=== PATIENT | female | born 2005 ===

== ENCOUNTER 2025-07-08 10:53 | Emergency (ER) | payer OTHER, SELFPAY ==
[2025-07-08 11:04] VITALS: BP 116/82; PULSE 85; O2SAT 100; BMI 17.7
[2025-07-08 11:46] LABS: MANUAL DIFF FLAG NO
[2025-07-08 11:50] LABS: Hematocrit 39.7 % (37.0-47.0); Hemoglobin 13.1 g/dl (12.0-16.0); Imm Gran Abs Auto 0.04 X10*3/uL (0.00-0.03); Imm Gran Pct Auto 0.7 % (0.0-0.4); Lymphocytes Absolute Auto 2.1 X10*3/uL (1.2-4.9); Mean Corpuscular HGB Conc 33.0 g/dl (31.0-35.0); Mean Corpuscular Hemoglobin 27.8 pg (27.0-33.0); Mean Corpuscular Volume 84.1 fL (80.0-98.0); NRBC Abs Auto 0.000 X10*3/uL (0.0-0.012); NRBC Pct Auto 0.0 /100WBC (0.0-0.2); Platelet Count 289 X10*3/uL (160-400); Red Blood Count 4.72 X10*6/uL (4.20-5.50); White Blood Count 5.5 X10*3/uL (4.8-10.8)
[2025-07-08 11:50] LABS: Appearance Urine Clear; Glucose Urine UA Negative (Negative); PH 5.5 (5.0-9.0); Specific Gravity - Urine >= 1.030 (1.005-1.025); UPreg QC Valid YES
[2025-07-08 11:59] LABS: Cannabinoid Screen Urine Not Detected (Not Detect)
--- NOTE | 2025-07-08 12:02 | ED_ITS ---
HPI - Psych General Chief Complaint: Psychiatric Symptoms Stated Complaint: CRISIS EVAL,CUT L WRIST W/RAZOR @SCHOOL Time Seen by Provider: 07/08/25 11:22 History of Present Illness ED Provider: Delvin Forbes MD HPI Narrative: This is a 20-year-old female with depression who comes from [facility] after self- inflicted left wrist wound. The wounds are very superficial though they were bandaged by EMS. Patient reports SI hopelessness. She is not completely forthcoming she took Zoloft for 3 days and then stopped she did not like the way it made her feel she does have an outpatient psychiatrist. She lives in [place] Related Data Allergies Allergy/AdvReac Type Severity Reaction Status Date / Time peanut Allergy Hives Verified 07/08/25 11:08 Peanut Butter Allergy Hives Verified 07/08/25 11:08 peanut oil Allergy Hives Verified 07/08/25 11:08 [facility] Social History Social History Advance Directives: No Advance Directives Information Provided: Yes Do you have a plan to hurt others: No Plan Physical Exam 2 Exam: Exam: EXAM: Gen: Alert, awake, well appearing, well hydrated. Head: Atraumatic Eyes: Anicteric, Normal conjunctiva. ENT: Moist mucosa, no pallor. ? Neck: Supple. Skin: ?Very superficial multiple lacerations to the left volar wrist Respiratory: Breathing comfortably, No distress.Clear to auscultation bilaterally, symmetric chest expansion, No wheeze, rales, ronchi. Cardiovascular: Regular rate and rhythm. No murmurs or rub. Well perfused periphery, warm extremities. No edema. ? Abdominal: No focal tenderness. Soft, no objective distension. No palpable masses or obvious organomegaly. ?No guarding, no rebound tenderness or other peritoneal findings. : No flank tenderness. Neuro: Alert. Gross movement of all extremities intact. ?Cranial nerve 2-12 exam not relevant to current presentation though her face appears symmetric and she has no objective motor deficits or dysarthria Psych: Calm. Sad and withdrawn with flat affect. She appears anxious sitting in the chair. Endorses SI MSK: No grossly visible deformity. Vital signs: See flowsheet Vital Signs: Vital Signs: Last Vital Signs Temp 98.1 F 07/08/25 13:52 Pulse 103 H 07/08/25 13:52 Resp 18 07/08/25 13:52 BP 138/90 H 07/08/25 13:52 Pulse Ox 100 07/08/25 12:38 O2 Del Method Room Air 07/08/25 12:38 BMI result Body Mass Index 17.7 Course Reevaluation(s) Reevaluation #2: Delvin Forbes MD: PRIOR TO DISCHARGE THE PATIENT I HAD A LENGTHY DISCUSSION WITH CARE TEAM WHO DID A COMPREHENSIVE EVALUATION DISCUSSED WITH PARENTS AND GOT CORROBORATING INFORMATION. THE PATIENT IS PLAN FOR SAFETY WITH OUTPATIENT FOLLOW UP. THE PATIENT AND MOTHER'S BOTH FEEL THE PATIENT IS SAFE TO BE DISCHARGED HOME WITH CLOSE EVALUATION. THERE WAS NO REPORTED ACCESS TO WEAPONS OR PRIOR SERIOUS SUICIDE ATTEMPTS. INJURY IS SUPERFICIAL TO THE BODY TODAY. Medications Administered Discontinued Medications Generic Name Dose Route Start Last Admin Trade Name Freq PRN Reason Stop Dose Admin Diphtheria/Tetanus/Acell Pertussis 0.5 ml 07/08/25 13:32 07/08/25 13:51 Diphth,Pertus(Acell),Tet Adult 0.5 Ml Syringe IM 07/08/25 13:33 Not Given .ONCE ONE Medical Decision Making Medical Decision Making MDM Narrative: Medical Decision Makin-year-old female with SI. Very superficial lacerations to the left wrist we will give tetanus shot no need for repair or prophylaxis. PLAN FOR CARE TEAM ASSESSMENT FOR A COMPREHENSIVE EVALUATION SAFETY ASSESSMENT. PATIENT'S MOTHER'S LIVE IN THE AREA AND/OR COMING TO BE WITH HER HERE. Preliminary Favored Differential Diagnosis: ANXIETY, DEPRESSION, SI, ADJUSTMENT DISORDER, among additional considered etiologies Testing Interpreted Independently: ?See below for details Radiology or Lab testing Results Reviewed: ?See below for details Consults: ?See below for details Independent Historians/External Chart Reviews: ?See below for details Social Determinants of Health Impacting MDM/Planning: ?See below for details Lab Data 07/08/25 11:41 07/08/25 11:41 Labs: Lab Results 07/08/25 07/08/25 Range/Units 11:36 11:41 WBC 5.5 (4.8-10.8) X10*3/uL RBC 4.72 (4.20-5.50) X10*6/uL Hgb 13.1 (12.0-16.0) g/dl Hct 39.7 (37.0-47.0) % MCV 84.1 (80.0-98.0) fL MCH 27.8 (27.0-33.0) pg MCHC 33.0 (31.0-35.0) g/dl RDW 13.8 (11.0-16.0) % Plt Count 289 (160-400) X10*3/uL MPV 10.6 (9.4-12.3) fL Immature Gran % (Auto) 0.7 H (0.0-0.4) % Neut % (Auto) 55.0 (45-73) % Lymph % (Auto) 38.4 (20-40) % [place] % (Auto) 4.9 (2-11) % Eos % (Auto) 0.5 (0-4) % Baso % (Auto) 0.5 (0-2) % Lymph # (Auto) 2.1 (1.2-4.9) X10*3/uL [place] # (Auto) 0.3 (0.1-1.2) X10*3/uL Eos # (Auto) 0.0 (0.0-0.4) X10*3/uL Baso # (Auto) 0.0 (0.0-0.2) X10*3/uL Abs Immat Gran (auto) 0.04 H (0.00-0.03) X10*3/uL Absolute Neuts (auto) 3.0 (2.0-8.3) x10*3/uL Absolute Nucleated RBC 0.000 (0.0-0.012) X10*3/uL Nucleated RBC % (auto) 0.0 (0.0-0.2) /100WBC Sodium 139 (135-145) mmol/L Potassium 4.1 (3.3-5.1) mmol/L Chloride 108 (96-108) mmol/L Carbon Dioxide 22 (22-29) mmol/L Anion Gap 13 (12-20) BUN 9 (9-16) mg/dL Creatinine 0.87 (0.5-1.4) mg/dL Estim Creat Clear Calc 73.8 Estimated GFR > 60 Random Glucose 108 (60-115) mg/dL Calcium 9.3 (8.4-10.2) mg/dL Total Bilirubin 0.8 (0.0-1.0) mg/dL AST 24 (5-31) U/L ALT 12 (0-31) U/L Alkaline Phosphatase 102 (39-117) U/L Total Protein 8.1 H (6.5-8.0) g/dL Albumin 4.6 (3.5-5.0) g/dL Urine Color Yellow Urine Appearance Clear Urine pH 5.5 (5.0-9.0) Ur Specific [place] >= 1.030 H (1.005-1.025) Urine Protein Trace (Neg-Trace) mg/dL Urine Glucose (UA) Negative (Negative) mg/dL Urine Ketones Trace (Negative) mg/dL Urine Blood Negative (Negative) Urine Nitrite Negative (Negative) Ur Leukocyte Esterase Negative (Negative) Urine RBC 0-2 (0-2) /HPF Urine WBC 0-5 (0-5) /HPF Ur Squamous Epith Cells 3-5 (0-2) /HPF Urine Bacteria 1+ (None Seen) Hyaline Casts 0-2 (0-2) /LPF Urine Test NEGATIVE (NEGATIVE) Urine Opiates Screen Not Detected (Not Detect) Ur Buprenorphine Scrn Not Detected (Not Detect) ng/mL Ur Oxycodone Screen Not Detected (Not Detect) ng/mL Urine Methadone Screen Not Detected (Not Detect) ng/mL Urine Fentanyl Screen Not Detected (Not Detect) Ur Barbiturates Screen Not Detected (Not Detect) Ur Phencyclidine Scrn Not Detected (Not Detect) Ur Amphetamines Screen Not Detected (Not Detect) U Benzodiazepines Scrn Not Detected (Not Detect) Urine Cocaine Screen Not Detected (Not Detect) U Marijuana (THC) Screen Not Detected (Not Detect) Ethyl Alcohol 11 mg/dL Discharge Plan Discharge Clinical Impression: Depression, Acute anxiety, Deliberate self-cutting Patient Disposition: Home, Self-Care Instructions: Depression (ED) Additional Instructions: You received a tetanus shot after self-harm with a knife superficially to the wrist. You were evaluated by our clinical care team. Return at anytime if you feeling suicidal or need to speak to someone. You were seen in our Emergency Department today for treatment of a behavioral health issue. It is important after your visit that you follow up with either your behavioral health provider or a primary care doctor within 7 days.? If you have trouble finding a therapist you can reach out to [address] [phone] The National Suicide and Crisis Lifeline can be reached 7 days a week 24 hours a day.? Call 988 to speak with someone.? Return for any worsening symptoms or concerns such as thoughts of self harm or harm to others. Please call 911 if you feel your mental health is worsening.? Interventions: [place]-Suicide Risk Severity Scale Last Done: 07/08/25 11:59 ED Discharge Assessment Last Done: 07/08/25 13:52 Discharge Date/Time: 07/08/25 13:53 Print Language: Divehi
[2025-07-08 12:03] LABS: Alanine Aminotransferase 12 U/L (0-31); Albumin Level 4.6 g/dL (3.5-5.0); Alkaline Phosphatase 102 U/L (39-117); Anion Gap 13 (12-20); Aspartate Amino Transferase 24 U/L (5-31); Blood Urea Nitrogen 9 mg/dL (9-16); Calcium 9.3 mg/dL (8.4-10.2); Carbon Dioxide 22 mmol/L (22-29); Chloride 108 mmol/L (96-108); Creatinine Clr Calc Pharmacy 73.8; Estimated Glomerular Filt Rate > 60; Potassium 4.1 mmol/L (3.3-5.1); Sodium 139 mmol/L (135-145); Total Protein 8.1 g/dL (6.5-8.0)
[2025-07-08 12:38] VITALS: BP 138/90; PULSE 103; RESP 18; TEMP 36.7; O2SAT 100
--- OUTSIDE RECORDS SUMMARY | 2025-07-08 13:50 | XMS_ITS | Encounter Summary ---
Author Organization [facility] Address [address] [place] [address] Phone Care Team Providers Care Glass Or Mirror Inspector Name Role Phone Naa Stephenson MD Primary Care Provider Naa Stephenson MD Unavailable Reason for Visit * Reason Onset Date Comments Follow-up 04/27/2025 Encounter Details Date Type Department Care Team (Late st Contact Info) Description 04/27/2025 Telephone [facility] [address] [place], [place] [phone] Naa Stephenson MD [address] [facility] [address] [place], [place] [id number] [email or web address] Follow-up Social History Tobacco Use Types Packs/Day Years Used Date Smoking Tobacco: Never Smokeless Tobacco: Never Child or Family Care Answer Date Record ed Do you have problems with on e of the following making it difficult for you to work, study, or receive health care? No 05/12/2024 Education Answer Date Recorded Are you interested in more education? Not on lashonda e 05/12/2024 Are you concerned about your learning, performance, or behavior in school? No 05/12/2024 No 05/12/2024 Yes 05/12/2024 Food Answer Date Recorded Within the past 6 months we worried whether our food would run out before we got money to buy more. Never True 05/12/2024 Within the past 6 months the food we bought just didn't last and we didn't have enough money to get more. Never True Residential Stability Answer Date Recor ded What is your housing situation today? I have kelsi sing 05/12/2024 How many times have you move d in the past 12 months? Zero (I did not move) 05/12/2024 Paying for Meds Answer Date Recorded Do you have trouble paying for medicines? No 05/12/2024 Paying Utility Bills Answer Date Record ed Do you have trouble paying your heating or elect ricity bill? No 05/12/2024 Transportation Answer Date Recorded Has the lack of transportati on kept you from medical appointments or from getting medications? No 05/12/2024 Unemployment Answer Date Recorded Are you currently unemployed or working on a part-time or temporary basis, and looking for work? No 12/26/2021 Digital Access Answer Date Recorded No 05/12/2024 Yes 05/12/2024 Do you have reliable internet access at home? Ye s 05/12/2024 Do you have a device (e.g., phone, tablet, computer) with a working camera? Yes 05/12/2024 Intimate Partner Violence Answer Date R ecorded Denied Basic Needs Not on file 05/12/2024 In the past 12 months have y ou been in a relationship with a person who hurts, threatens, or tries to control you? No 05/12/2024 Worried food would run out Not on file 05/12 In the past 12 months have y ou been in a relationship with a person who hurts, threatens, or tries to control you? No 05/12/2024 Comments Unknown Sex and Gender Information Value Date Recorded Sex Assigned at Female 03/13/2022 5:56 PM EDT Legal Sex Female 8:42 PM EDT Gender Identity Female 03/13/2022 5:56 PM EDT Sexual Orientation Choose not to disclose 2021 5:56 PM EDT documented as of this encounter Progress Notes * Milton Flores - 04/27/2025 11:45 AM EDT Pt mom called in, said it was urgent she speak to someone inf the office, said they are returning acall. They are frustrated byt the office error of scheduling the appt incorrectly and we are wasting her time with these phone calls. 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 documented in this encounter Plan of Treatment Upcoming Encounters Date Type Department Care Team (Late st Contact Info) Description 07/27/2025 10:00 AM EDT Office Visit [address] [address] Naa Stephenson MD [address] [place] [phone] documented as of this encounter Visit Diagnoses Not on filedocumented in this encounter Additional Health Concerns Assessment Noted Time PHQ-9 Depression Total Score: 14 022 4:11 PM EDT PHQ-2 Depression Total Score: 0 05/12/20 24 9:02 AM EDT documented as of this encounter Care Teams Glass Or Mirror Inspector Relationship Specialty Start Date End Date Naa Stephenson MD [address] [place] [id number] PCP - General Family Medicine 11/13/21 Naa Stephenson MD [address] [place] [phone] Insurance Assigned Provider 01/11/24 documented as of this encounter Additional Source Comments The information contained in this document represents components of the legal health record. It is not the complete legal health record.[facility]
--- OUTSIDE RECORDS SUMMARY | 2025-07-08 13:50 | XMS_ITS | Encounter Summary ---
Author Organization [facility] Address [address] [facility] [address] [place] [phone] Phone Care Team Providers Care Electronics Hardware Design Engineer Name Role Phone Naa Stephenson MD Primary Care Provider Naa Stephenson MD Unavailable [phone] Encounter Details Date Type Department Care Team (Latest Contact Info) Description 10/18/2023 Transcribe Orders Virtual Department [address] [place] [address] Summer Navas PA [address] [place] [address] Abdominal pain, unspecified abdominal location (Primary Dx); Weight loss Social History Tobacco Use Types Packs/Day Years Used Date Smoking Tobacco: Never Smokeless Tobacco: Never Child or Family Care Answer Date Record ed Do you have problems with on e of the following making it difficult for you to work, study, or receive health care? No 12/26/2021 Education Answer Date Recorded Are you interested in help w ith more adult education (for example, completing high school, GED, job training, learning the [place] language, technical skills, or developing parenting skills)? No 12/26/2021 Food Answer Date Recorded Within the past 6 months we worried whether our food would run out before we got money to buy more. Never True 12/26/2021 Within the past 6 months the food we bought just didn't last and we didn't have enough money to get more. Never True Residential Stability Answer Date Recor ded What is your housing situation today? I have kelsi berumen 12/26/2021 How many times have you move d in the past 12 months? Zero (I did not move) 12/26/2021 Paying for Meds Answer Date Recorded Do you have trouble paying for medicines? No 12/26/2021 Paying Utility Bills Answer Date Record ed Do you have trouble paying your heating or elect ricity bill? No 12/26/2021 Transportation Answer Date Recorded Has the lack of transportati on kept you from medical appointments or from getting medications? No 12/26/2021 Unemployment Answer Date Recorded Are you currently unemployed or working on a part-time or temporary basis, and looking for work? No 12/26/2021 Digital Access Answer Date Recorded No 02/27/2023 No 02/27/2023 Reliable internet access at home? Not on file 02/27/2023 Device with a working camera? Not on file Comments Unknown Sex and Gender Information Value Date Recorded Sex Assigned at Female 03/13/2022 5:56 PM EDT Legal Sex Female 8:42 PM EDT Gender Identity Female 03/13/2022 5:56 PM EDT Sexual Orientation Choose not to disclose 2021 5:56 PM EDT documented as of this encounter Plan of Treatment Upcoming Encounters Date Type Department Care Team (Late st Contact Info) Description 07/27/2025 10:00 AM EDT Office Visit [facility] [address] [place] [address] Naa Stephenson MD [address] [place] [address] documented as of this encounter Visit Diagnoses Diagnosis Abdominal pain, unspecified abdominal location- Primary Weight loss Loss of weight documented in this encounter Additional Health Concerns Assessment Noted Time PHQ-9 Depression Total Score: 14 022 4:11 PM EDT PHQ-2 Depression Total Score: 5 12/27/19 22 4:11 PM EDT documented as of this encounter Care Teams Electronics Hardware Design Engineer Relationship Specialty Start Date End Date Naa Stephenson MD 234 [facility] 7 [place] [address] [email or web address] PCP - General Family Medicine 11/13/21 Naa Stephenson MD 234 [facility] 7 [place] [address] [email or web address] Insurance Assigned Provider 01/11/24 documented as of this encounter Additional Source Comments The information contained in this document represents components of the legal health record. It is not the complete legal health record.[facility]
--- OUTSIDE RECORDS SUMMARY | 2025-07-08 13:50 | XMS_ITS | Encounter Summary ---
Author Organization [facility] Address [address] [place] [address] Phone Care Team Providers Care Gusset Edger Name Role Phone Naa Stephenson MD Primary Care Provider Naa Stephenson MD Unavailable Encounter Details Date Type Department Care Team (Late st Contact Info) Description 03/10/2024 Procedure [facility] [address] [place] [address] Social History Tobacco Use Types Packs/Day Years Used Date Smoking Tobacco: Never Smokeless Tobacco: Never Child or Family Care Answer Date Record ed Do you have problems with on e of the following making it difficult for you to work, study, or receive health care? No 12/26/2021 Education Answer Date Recorded Are you interested in more education? Not on lashonda e 12/31/2023 Are you concerned about learning? Not on file 12/31/2023 No 12/31/2023 No 12/31/2023 Food Answer Date Recorded Within the past [...] Upcoming Encounters Date Type Department Care Team ([facility] st Contact Info) Description 07/27/2025 10:00 AM EDT Office Visit [facility] [address] [place] [address] Naa Stephenson MD [address] [address] [email or web address] documented as of this encounter Visit Diagnoses Not on filedocumented in this encounter Additional Health Concerns Assessment Noted Time PHQ-9 Depression Total Score: 14 022 4:11 PM EDT PHQ-2 Depression Total Score: 5 12/27/19 22 4:11 PM EDT documented as of this encounter Care Teams Gusset Edger Relationship Specialty Start Date End Date Naa Stephenson MD [address] [address] [email or web address] PCP - General Family Medicine 11/13/21 Naa Stephenson MD [address] [place] [address], [address] [place] [id number] [email or web address] Insurance Assigned Provider 01/11/24 documented as of this encounter Additional Source Comments The information contained in this document represents components of the legal health record. It is not the complete legal health record.[facility]
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
[2025-07-08 13:52] VITALS: BP 138/90; PULSE 103; RESP 18; TEMP 36.7
== END 2025-07-08 13:53 | disposition home or self-care (01) ==
PROVIDERS: Emergency Medicine; Emergency Provider Emergency Medicine; PCP Family Medicine
DX: S61.512A Laceration without foreign body of left wrist, initial encounter (principal); F33.1 Major depressive disorder, recurrent, moderate; F41.9 Anxiety disorder, unspecified; R45.851 Suicidal ideations; X78.9XXA Intentional self-harm by unspecified sharp object, initial encounter; Y93.9 Activity, unspecified; Y92.9 Unspecified place or not applicable; Y99.8 Other external cause status; Z51.81 Encounter for therapeutic drug level monitoring; Z79.899 Other long term (current) drug therapy
CPT/HCPCS: 36415; 80053; 80307; 81001; 81025; 85025; 99284; 99285; S9485